=== PATIENT | female | born 1995 | race Caucasian/White ===

== ENCOUNTER 2017-06-01 17:52 | Emergency (ER) | payer OTHER ==
[~2017-06-01] VITALS: Ht 165.1 cm; Wt 69.4 kg
[2017-06-01 18:06] VITALS: BP 132/82; PULSE 107; TEMP 36.7; O2SAT 98; Ht 165.1 cm; Wt 69.4 kg
[2017-06-01] MEDS ORDERED: VENL225T27 PO (18:40)
[2017-06-01] MEDS ORDERED: NAPR-1168 PO (18:40)
[2017-06-01] MEDS ORDERED: BCPILLS PO (18:40)
[2017-06-01] MEDS ORDERED: RIBO100T9 PO (18:40)
[2017-06-01] MEDS ORDERED: TOPI100T20 PO (18:40)
[2017-06-01] MEDS ORDERED: MAGN250T3 PO (18:40)
[2017-06-01] MEDS ORDERED: SUMA100T16 PO (18:40)
[2017-06-01] MEDS ORDERED: FLUCONAZOLE 50 MG TAB PO ONE (19:00)
--- NOTE | 2017-06-02 00:44 | EMERGENCY ROOM VISIT NOTE ---
History Report prepared by Ilda: Lilia Daley Under the Supervision of: Dr. Алекасндр Talley M.D. First contact with patient: 18:22 Chief Complaint: VAGINAL DISCHARGE Stated Complaint: VAGINAL DISCHARGE, BLOOD/PAIN/ITCHINESS- [facility] REFERR History of Present Illness The patient is a 22 year old female who presents to the Emergency Room with complaints of persistent vaginal discharge starting 4 days ago. The patient was seen earlier today by a PA at urgent care. She had a pelvic exam and swabs. She was sent to the ED over concerns of PID after her cervix was found to be inflamed and red. There was also WBC and blood in her urine. She has some vaginal pain and bleeding. She denies any sore throat, dysuria, fever, or vomiting. She notes that she had some bleeding and pain after intercourse 5 days ago. She has been sexually active with 1 partner for the past month. She and her boyfriend have had no previous partners. They do not use protection. Her last menstrual period was 2 weeks ago. She denies any history of STD. She does not believe that she is . Source of History: patient Onset: 4 days ago Position: other (vaginal) Quality: other (discharge) Timing: other (persistent) Associated Symptoms: No fevers, No sorethroat, No vomiting, No urinary symptoms Note: Pt reports vaginal pain and bleeding. Review of Systems See HPI for pertinent positives & negatives. A total of 10 systems reviewed and were otherwise negative. Past Medical & Surgical Medical Problems: (1) No chronic problems Family History Diabetes mellitus Social History Smoking Status: Never Smoker Marital Status: in relationship Housing Status: lives alone Current/Historical Medications Scheduled Control Pills ( Control Pills), 1 TAB PO DAILY Magnesium (Magnesium 250 mg), 1 TAB PO DAILY Riboflavin (Vitamin B-2), 200 MG PO DAILY Sumatriptan Succinate (Imitrex), 100 MG PO PRN Topiramate (Topamax), 100 MG PO DAILY Venlafaxine Hcl (Venlafaxine Hcl Er), 1 TAB PO DAILY Scheduled PRN Naproxen Ds (Naprosyn Ds), 550 MG PO DAILY PRN for Pain Physical Exam Vital Signs Date Time Temp Pulse Resp B/P (MAP) Pulse Ox O2 Delivery O2 Flow Rate FiO2 06/01/17 18:06 36.7 107 18 132/82 98 Room Air Physical Exam Constitutional: Vital signs reviewed. Eyes: Pupils are equal round reactive to light. Conjunctiva are noninjected. ENT: Pharynx is clear without erythema or exudate. Mucous membranes are moist. Neck supple without meningeal signs. Respiratory: Clear to auscultation bilaterally. Breath sounds are equal bilaterally. Cardiovascular: Regular rate and rhythm. No rubs or gallops. GI: Soft, nondistended and nontender. Bowel sounds are present. Pelvic: Thick whitish discharge in the vaginal vault with some mild erythema to the vaginal vault and cervix, no cervical motion tenderness, no adnexal tenderness or fullness, no external lesions. Musculoskeletal: No peripheral edema. Integumentary: No cyanosis. Neurological: The patient is awake and alert. No focal deficits. Psychiatric: Normal affect. Medical Decision & Procedures Laboratory Results Test 06/01/17 18:57 06/01/17 19:00 Bedside Glucose 118 mg/dl (70-90) Date/Time Source Procedure Growth Status 06/01/17 18:57 Vaginal Swab Trichomonas Preparation - Final Complete Laboratory results as reviewed by me. Medications Administered Medications (Trade) Dose Ordered Sig/Marilu Route Start Time Stop Time Status Last Admin Dose Admin Fluconazole (Diflucan Tab) 150 mg NOW ONCE PO 06/01/17 19:00 06/01/17 19:01 DC 06/01/17 19:07 150 MG ED Course 3: The patient was evaluated in room B4B. A complete history and physical exam was performed. 0: Diflucan Tab 150 mg PO. 3: The patient's blood sugar is 118. 1905: Upon reevaluation, the patient was resting comfortably. I discussed tonight's findings with her. She verbalized agreement of the treatment plan. She was discharged home. Medical Decision This is a 22-year-old female presents with vaginal bleeding and discharge. Differential diagnosis includes STI, trichomoniasis, vaginal candidiasis, . I did perform a limited focused review of portions of the patient's old chart on the electronic medical record. The patient has had no prior visits. I did evaluate the patient as noted above. The patient was seen at an urgent care center and sent here over concerns of PID. The patient is very well- appearing. She has no abdominal tenderness. She has had no fever or vomiting. She has only had one sexual partner and her partner has never had any prior partners. I did perform a physical examination which revealed no evidence of PID. Her cervix was mildly inflamed as well as the vaginal vault with thick whitish discharge consistent with candidal vaginitis. There is no cervical motion tenderness or signs of PID on examination. I did discuss my findings with the patient. I did treat her with Diflucan 150 mg orally. She was advised follow up with a implementation coordinator. She was discharged in good condition. Cultures are pending. Trichomonas testing is negative. GC and chlamydia tests are pending. Medication Reconcilliation Current Medication List: was personally reviewed by me Blood Pressure Screening Patient's blood pressure: Elevated blood pressure Blood pressure disposition: Elevated BP felt to be situational Impression Primary Impression: [place] vaginitis Scribe Attestation The scribe's documentation has been prepared under my direct and personally reviewed by me in its entirety. I confirm that the note above accurately reflects all work, treatment, procedures, and medical decision making performed by me. Departure Information Dispostion Home / Self-Care Referrals No Doctor, Assigned (PCP) Forms HOME CARE DOCUMENTATION FORM, IMPORTANT VISIT INFORMATION, WORK / SCHOOL INSTRUCTIONS Patient Instructions ED Vaginal Infec Fungal [place], My [facility] Additional Instructions You have been examined and treated today on an emergency basis only. This is not a substitute for, or an effort to provide, complete comprehensive medical care. It is impossible to recognize and treat all injuries or illnesses in a single emergency department visit. It is therefore important that you follow up closely with your physician. Call as soon as possible for an appointment. Return for worsening symptoms or if you develop fever, vomiting, or any other concerning symptoms.
[2017-06-04 01:57] LABS: CHLAMYDIA TRACH RNA*** NOT DETECTED (NOT DETECTED); GC (NEIS GONORRHOEAE)RNA** NOT DETECTED (NOT DETECTED)
== END 2017-06-01 19:10 | disposition home or self-care (01) ==
LOC: C.EDB 17:54
DX: B37.3 Candidiasis of vulva and vagina (principal); Z83.3 Family history of diabetes mellitus